=== PATIENT | male | born 1970 | race Caucasian/White ===

== ENCOUNTER 2024-04-26 10:10 | Emergency (ER) | payer BC, SELFPAY ==
[2024-04-26 10:29] VITALS: BP 128/89
[2024-04-26 10:33] VITALS: BP 128/89
--- NOTE | 2024-04-26 10:56 | ED.GENMED ---
History of Present Illness
General
Chief Complaint: Chest Pain
Source: patient
Exam Limitations: none
Time Seen by Provider: 04/26/24 10:41
Nursing documentation reviewed up to this point in time: agreed with
History of Present Illness
History of Present Illness:
The patient is a pleasant 53-year-old man with a past medical history of coronary artery disease who comes in with complaints of fairly sudden onset of left sided chest pain that started at 9 AM this morning while driving home from his mother's
house. Patient denies any associated symptoms such as shortness of breath, sweating, nausea or vomiting. He reports that the pain is very mild at this time and worse when he takes a deep breath. It does not radiate anywhere. Patient denies any
injuries. He denies cough and fever. He denies a history of PE and DVT. He denies leg pain and leg swelling.
Past History
Past History
ED Past Medical History: CAD, HTN, Hypercholesterolemia, MO and Seizures
ED Past Surgical History: Orthopedic (ACL repair)
Social History
Tobacco: Non-smoker
Alcohol: Occasional
Drug: None
Personal: Other
Living: other
Employment: Other
Family History
Family History: Other
Review of Systems
Review of Systems
Allergies reviewed?: Yes
All Other Systems: ROS reviewed and negative except as documented in HPI and ROS
Constitutional: Reports no symptoms
EENT: Reports no symptoms
Respiratory: Reports no symptoms
Cardiac: Reports chest pain
ABD/GI: Reports no symptoms
: Reports no symptoms
Musculoskeletal: Reports no symptoms
Skin: Reports no symptoms
Neurological: Reports no symptoms
Endocrine: Reports no symptoms
Hematologic/Lymphatic: Reports no symptoms
Psychiatric: Reports no symptoms
Phy Exam
Physical Exam
Physical Exam:
Physical Exam
General: no apparent distress, not acutely il. Well-appearing l
Neck: supple. no meningeal signs. normal psoterior pharynx
Heart: s1/s2 regular rate and rhythm, no murmur. equal radial pulses.
Lungs: no acute respiratory distress. clear bilaterally
Abdomen: normal bowel sounds. not tender. no CVAT
Neuro: alert and oriented. no focal neurological deficits
Skin: no rash
Psychiatric: well kept. interactive and cooperative
Extremities: no edema. no calf tenderness. negative homans. good distal pulses
Scores
Heart Score for Chest Pain Patients
STEMI patient?: No
History: Slightly or Non-Suspicious
ECG: Normal
Age: >45 - <65 years
Risk Factors: >/= 3 Risk Factors or History of CAD
Troponin: </= Normal Limit
Heart Score for Chest Pain Patients: 3
Heart Score Risk: 2.5% MACE over next 6 weeks
Course
Orders/Labs/Results
Orders:
Orders
04/26/24 10:14
Electrocardiogram (*1) Urgent
Reason for Study: Chest Pain
EKG- Treatment ONCE
04/26/24 11:12
Complete Blood Count/With Diff Urgent
Comprehensive Metabolic Panel Urgent
D-Dimer Urgent
Troponin I Urgent
04/26/24 12:37
CR Chest - 2 Views Urgent
Comment:
Reason For Exam: CP
04/26/24 13:06
Troponin I Urgent
04/26/24 13:20
EKG [Electrocardiogram (*1)] Urgent
Reason for Study: Chest Pain
EKG- Treatment ONCE
04/26/24 14:15
Ketorolac [Toradol] 30 mg IV NOW STA
04/26/24 14:37
Electrocardiogram (*1) Urgent
Reason for Study: Chest Pain
EKG- Treatment ONCE
04/26/24 14:47
0.9% Sodium Chloride 500 ml [Nss] 500 ml IV BOLUS
Abnormal Lab Results
04/26/24
11:12
MCH 32.6 H pg
(27.0-31.0)
Monocytes % 9.9 H %
(1.7-9.3)
04/26/24 11:12
04/26/24 11:12
Vital Signs
Initial and Last Documented VS:
Initial Vital Signs
Temp Pulse BP Pulse Ox
98.1 F 64 128/89 96
04/26/24 10:29 04/26/24 10:29 04/26/24 10:29 04/26/24 10:29
Last Documented Vital Signs
Temp Pulse Resp BP Pulse Ox
97.8 F 62 21 138/90 95
04/26/24 15:27 04/26/24 14:34 04/26/24 14:34 04/26/24 15:22 04/26/24 14:00
MDM/Problems Addressed
Differential Diagnosis Includes:
Acute coronary syndrome, PE, pleurisy, musculoskeletal chest pain
MDM/Problems Addressed:
Patient presents with acute chest pain
Chronic conditions affecting care: CAD
Acute Exacerbation and/or Progression of Chronic Illness:
Pain could represent acute exacerbation of chronic CAD
Acute Exacerbation and/or Progression of Chronic Illness: CAD
*Radiology
Radiology exam reviewed: preliminary read by ED provider (Chest x-ray read by me. No acute disease) and radiology read reviewed
*Pulse Oximetry
Patient hypoxic: no
*EKG
Interpreted by ED Provider?: Yes
Interpretation: normal
Comparison EKG: no changes
Rate: normal
Rhythm: sinus
Lapoint: normal axis
Interval: normal interval
QRS Pattern: normal QRS
Ischemia: no ischemia
*Power Plant Technician Interpretation
Rate: normal
Interpretation: normal
Rhythm: sinus
*Critical Care Note
Total Time (30-74mins, 75-104mins- exclusive of procedures): Not Applicable
Data Reviewed
Review of Other/Old Records Reveals: Testing (Normal cardiac stress echo in 2020)
Source: patient
Patient Management
Social determinants of health affecting care: Living situation and Strong social support
Update Note
Update Note:
Patient reports Toradol has made the pain nearly go away in his chest. Patient has 2 normal troponins and appears extremely well and comfortable. It is doubtful he was acute coronary syndrome. 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
Patient to return with any worsening symptoms such as chest pain, dizziness or shortness of breath.
ED Attending Note
-
Portions of this chart may have been created with voice recognition software.� Occasional wrong word or��sound alike� substitutions may have occurred due to the inherent limitations of voice recognition software.
Discharge Plan
Departure
Patient Disposition: Home (Routine Discharge)
Date of Disposition: 04/26/24
Time of Disposition: 15:11
Patient with high blood pressure during this ER visit?: Yes
Condition: Good
Covid-19: Not Applicable
Discharge Problem:
Chest pain in adult
Instructions: Chest Pain DCA Follow Up
Prescriptions:
No Action
atorvastatin 80 MG tablet
80 mg PO QPM Qty: 30 3RF
clopidogrel 75 MG tablet
75 mg PO DAILY Qty: 30 11RF
pantoprazole 40 MG tablet,delayed release (DR/EC)
40 mg PO DAILY Qty: 30 3RF
Rx Instructions:
this will replace Nexium
aspirin 81 MG tablet,chewable
81 mg PO DAILY Qty: 0 0RF
metoprolol succinate 25 MG tablet extended release 24 hr
25 mg PO DAILY Qty: 30 3RF
lisinopril 2.5 MG tablet
2.5 mg PO DAILY Qty: 30 3RF
Referrals:
Mc Cervantes MD [Active] - (Call Dr. Cervantes's office if you do not hear from them by Sunday)
Noe Zarate, DO [Family Provider] -
Interventions
Interventions:
*Risk Screen - Suicide Last Done: 04/26/24 10:33
*General Assessment Last Done: 04/26/24 11:28
*Neglect/Abuse Screening Last Done: 04/26/24 10:33
ED- Fall Risk Assessment Last Done: 04/26/24 11:30
*ED COVID-19 Vaccine History Last Done: 04/26/24 10:37
*Nursing Disposition Last Done: 04/26/24 15:27
ED- Cardiac Assessment Last Done: 04/26/24 11:30
Discharge Date and Time
Print Language: AMHARIC
[2024-04-26 11:29] VITALS: BMI 30.3
[2024-04-26 11:37] LABS: % Basophils 0.8 % (0-2); % Eosinophils 1.3 % (0-6); % Immature Granulocytes 0.3 % (0-0.5); % Lymphocytes 26.8 % (20.5-51.1); % Monocytes 9.9 % (1.7-9.3); % Neutrophils 60.9 % (42.2-75.2); Absolute Basophils 0.1 10^3/uL (0-0.2); Absolute Eosinophils 0.1 10^3/uL (0-0.7); Absolute Lymphocytes 1.6 10^3/uL (1.2-3.4); Absolute Monocytes 0.6 10^3/uL (0.1-0.6); Absolute Neutrophils 3.6 10^3/uL (1.4-6.5); Hematocrit 44.1 % (39.0-52.0); Hemoglobin 15.9 g/dL (13.0-18.0); Mean Corp Hgb Conc. 36.1 g/dL (33.0-37.0); Mean Corpuscular Hgb 32.6 pg (27.0-31.0); Mean Corpuscular Volume 90.4 fL (80.0-94.0); Mean Platelet Volume 10.2 fL (7.4-10.4); Nucleated Red Blood Cells % 0 % (-); Platelet Count 203 10^3/uL (130-400); Red Blood Cell Count 4.88 10^6/uL (4.70-6.10); Red Cell Dist. Width 11.9 % (11.5-14.5); White Blood Cell Count 5.9 10^3/uL (4.8-10.8)
[2024-04-26 11:50] LABS: ALT (SGPT) 32 U/L (0-50); AST (SGOT) 34 U/L (17-59); Albumin 4.5 g/dl (3.5-5.0); Alkaline Phosphatase 57 U/L (38-126); Blood Urea Nitrogen 18 mg/dl (9-20); Calcium 9.7 mg/dl (8.4-10.2); Carbon Dioxide 26 mmol/L (22-30); Chloride 105 mmol/L (98-107); Estimated Creatinine Clearance 98 ml/min; Glucose 96 mg/dl (70-99); Potassium 4.6 mmol/L (3.5-5.1); Sodium 140 mmol/L (135-145); Total Bilirubin 0.6 mg/dl (0.2-1.3); Total Protein 6.5 g/dl (6.3-8.2); eGFR > 60.00
[2024-04-26 12:00] VITALS: BP 131/81
[2024-04-26 12:02] LABS: Troponin I < 0.012 ng/ml
[2024-04-26 12:33] LABS: D-Dimer < 0.27 ug/mlFEU (0.00-0.50)
[2024-04-26 13:37] VITALS: BP 132/82
[2024-04-26 13:55] LABS: Troponin I < 0.012 ng/ml
[2024-04-26 14:00] VITALS: BP 128/80
[2024-04-26] MEDS: TORADOL 30 MG IV (14:30)
[2024-04-26 15:22] VITALS: BP 138/90
== END 2024-04-26 15:27 | disposition home or self-care (01) ==
LOC: EMR 10:10
PROVIDERS: EMERGENCY PHYSICIAN Emergency Medicine; FAMILY PHYSICIAN Internal Medicine
DX: R07.89 Other chest pain (principal); I25.10 Atherosclerotic heart disease of native coronary artery without angina pectoris; I10 Essential (primary) hypertension; E78.00 Pure hypercholesterolemia, unspecified; R56.9 Unspecified convulsions; I25.2 Old myocardial infarction; Z79.82 Long term (current) use of aspirin; Z95.5 Presence of coronary angioplasty implant and graft; Z91.013 Allergy to seafood
CPT/HCPCS: 99285; 96374; 71046; 80053; 84484; 85025; 85379; 93005

== ENCOUNTER → 2024-06-05 08:20 | Outpatient (REF) | payer BC, SELFPAY | LOC: RCS 08:20 | PROVIDERS: ATTENDING PHYSICIAN Physician Assistant Medical; FAMILY PHYSICIAN Internal Medicine | DX: I25.10 Atherosclerotic heart disease of native coronary artery without angina pectoris (principal); R07.9 Chest pain, unspecified | CPT/HCPCS: 93017; 93350 ==